=== PATIENT | male | born 1955 | race Caucasian/White ===

== ENCOUNTER 2018-12-12 05:48 | Inpatient (IN) | payer OTHER ==
[~2018-12-12] VITALS: Ht 177.8 cm; Wt 89.4 kg
[2018-12-12] MEDS ORDERED: ATEN50TA PO (06:45)
[2018-12-12] MEDS ORDERED: AMLO5TAB4 PO (06:45)
[2018-12-12] MEDS ORDERED: OMEP40CA33 PO (06:45)
[2018-12-12] MEDS ORDERED: LOSA100T3 PO (06:45)
[2018-12-12] MEDS ORDERED: ALVIMOPAN 12 MG CAPSULE PO ONE ×2 (07:03→07:15)
[2018-12-12] MEDS ORDERED: cefOXitin SODIUM 2 GM in D5W 100 ML IV ONE (07:15)
[2018-12-12] MEDS ORDERED: NS 1000 ML IV.SOLN IV ONE (08:00)
[2018-12-12] MEDS ORDERED: fentaNYL CITRATE 250 MCG/5 ML AMP IV ONE (08:00)
[2018-12-12] MEDS ORDERED: FAMOTIDINE PF 20 MG/2 ML VIAL IVP ONE (08:00)
[2018-12-12] MEDS ORDERED: ONDANSETRON HCL 4 MG/2 ML VIAL IVP ONE (08:00)
[2018-12-12] MEDS ORDERED: ROCURONIUM BROMIDE 10 MG/ML (ZEMURON) IV ONE (08:00)
[2018-12-12] MEDS ORDERED: KETOROLAC TROMETHAMINE 30 MG VIAL IVP ONE (08:00)
[2018-12-12] MEDS ORDERED: DEXAMETHASONE SOD PHOSPHATE 4 MG/ML VIAL IVP ONE (08:00)
[2018-12-12] MEDS ORDERED: SEVOFLURANE 15 MIN GAS INH ONE (08:00)
[2018-12-12] MEDS ORDERED: NS 100 ML BAG IV ONE (08:00)
[2018-12-12] MEDS ORDERED: LR 1,000 ML IV.SOLN IV ONE (08:00)
[2018-12-12] MEDS ORDERED: ROPIVACAINE HCL/PF 5 MG/ML 0.5% 30 ML VIAL INJ ONE (08:00)
[2018-12-12] MEDS ORDERED: NS IRRIG SOLN 1000 ML IR ONE (08:00)
[2018-12-12] MEDS ORDERED: MIDAZOLAM HCL 5 MG/5 ML VIAL IVP ONE (08:00)
[2018-12-12] MEDS ORDERED: PROPOFOL 200MG/ 20ML VIAL (DIPRIVAN) IV ONE (08:00)
[2018-12-12] MEDS ORDERED: cefOXitin SODIUM 2 GM/VIAL (MEFOXIN) IV ONE (08:00)
[2018-12-12] MEDS ORDERED: LR 1,000 ML IV SCH (08:51)
[2018-12-12] MEDS ORDERED: FAMOTIDINE PF 20 MG/2 ML VIAL ONE (08:55)
[2018-12-12] MEDS ORDERED: HYDROmorphone 1 MG INJ. 1 MG/ML AMPUL IVP PRN (09:00)
[2018-12-12] MEDS ORDERED: MEPERIDINE HCL/PF 25 MG/ML DISP.SYRIN IVP PRN (09:00)
[2018-12-12] MEDS ORDERED: HYDROmorphone 2 MG/ML VIAL IVP PRN (09:00)
[2018-12-12] MEDS ORDERED: BUPIVACAINE LIPOSOME/PF 266 MG/20 ML VIAL INFIL ONE (10:20)
[2018-12-12] MEDS: D5/0.45 NS 1,000 ML IV SCH ×2 (10:43→17:55)
[2018-12-12] MEDS ORDERED: ACETAMINOPHEN 325 MG TABLET PO PRN (10:45)
[2018-12-12] MEDS ORDERED: ONDANSETRON HCL 4 MG/2 ML VIAL IVP PRN (10:45)
[2018-12-12] MEDS ORDERED: HYDROcodone/ACETAMIN 5-325 MG TAB (NORCO/ VICODIN) PO PRN ×2 (10:45)
[2018-12-12] MEDS ORDERED: HYDROmorphone 2 MG/ML VIAL ONE ×3 (11:46→13:16)
[2018-12-12] MEDS: HYDROmorphone 2 MG/ML VIAL IVP PRN ×2 (11:50→13:06)
[2018-12-12 12:24] LABS: CREATININE 0.96 mg/dL (0.55-1.30); POTASSIUM 4.2 mmol/L (3.5-5.1)
[2018-12-12 12:31] LABS: HEMATOCRIT 38.1 % (36-54); HEMOGLOBIN 12.3 g/dL (14.0-18.0)
[2018-12-12 12:41] LABS: CALCIUM 8.2 mg/dL (8.4-11.0)
--- NOTE | 2018-12-12 16:32 | NUR ---
ADMISSION: The patient, VENTURA GURROLA, 63 y/o, M admitted by WILTON MENDOZA MD, was given written information regarding hospital policies, unit procedures and contact persons. Valuables were checked and logged.
--- NOTE | 2018-12-12 16:35 | NUR ---
NOTE REPORT RECEIVED FROM SKYLER LOPEZ. PATIENT HAD A LAPROSCOPIC ASSISTED RIGHT JEB COLECTOMY TO REMOVE A RIGHT COLON MASS. PATIENT IS STABLE. ALERT AND ORIENTED. NO C/O PAIN AT THIS TIME. CONT ON 3 L/M VIA NC, EL WELL. NO ACUTE DISTRESS. NO SOB. RESPIRATION EVEN AND UNLABORED. SKIN WARM AND DRY TO TOUCH. IV INTACT AND PATENT; EL IVF. MANE CATH INTACT AND PATENT DRAINING YELLOW URINE BY GRAVITY. BILAT SCDs INTACT. ORIENTED PATIENT TO ROOM, BED AND CALL LIGHT. BED INLOW AND LOCKED POSITION. SIDERAIL UP X3. BED ALARM ON. CALL LIGHT IN REACH. CONT TO MONITOR
[2018-12-12 16:46] VITALS: BP_SYST 121
--- NOTE | 2018-12-12 17:05 | NUR ---
CONSULTATION PAGED REASON FOR CONSULTATION:MEDICAL MANAGEMENT WAS CONSULT CALLED?Y PERSON WHO WAS NOTIFIED:[facility] CONSULTING PHYSICIAN:SHEFALI ALBARADO MANAGER IMAGING SPECIALTY:INTERNAL MEDICINE MANAGER IMAGING PHONE NUMBER: REQUESTING PHYSICIAN:WILTON WHITNEY
--- NOTE | 2018-12-12 17:30 | NUR ---
MADE AWARE OF PATIENT CONSULTATION; WILL SEE PATIENT TOMORROW
[2018-12-12] MEDS: HYDROmorphone 1 MG INJ. 1 MG/ML AMPUL IVP PRN ×2 (17:46→20:49)
--- NOTE | 2018-12-12 18:17 | NUR ---
PAIN PATIENT C/O 10/10 PAIN TO ABDOMINAL INCISION. ABDOMINAL BINDER IN PLACE. BP 127/68 HR 69. DILAUDID ADMINISTERED FOR SEVERE PAIN, EL WELL. CONT TO MONITOR
--- NOTE | 2018-12-12 19:05 | NUR ---
CLOSING NOTE PATIENT STABLE. RESTING IN BED. NO C/O PAIN AT THIS TIME. CONT ON O2@3L/M VIA. NO ACUTE DISTRESS. NO SOB. RESPIRATION EVEN AND UNLABORED. SKIN WARM AND DRY TO TOUCH. IV INTACT AND PATENT; EL IVF. SURGICAL DRESSING C/D/I WITH ABDOMINAL BINDER IN PLACE AND EL WELL. MANE CATH INTACT AND PATENT DRAINING YELLOW URINE. ALL NEEDS MET. BED IN LOW AND LOCKED POSITION. SIDEDRAIL UPX3. CALL LIGHT IN REACH. CONT TO MONITOR.
--- NOTE | 2018-12-12 19:15 | NUR ---
INITIAL NOTES: pt is awake, alert, oriented x 4. watching tv. complain moderate pain to abdomen. no sob, not distress. vital sign are stable and with in normal limit. pt is post right hemicolectomy, incisions are dry clean and intact, supported by abdominal binder. ivf infusing to right forearm using gauge18- patent and intact. pt has bilateral scd. garcia catheter draining well to clear urine. discuss plan of care to pt, his medication and safety. pt verbalized understanding. pt demonstrate I.S.. needs attended call light in reach. side rails up. low bed position. will follow-up.
[2018-12-12 20:16] VITALS: BP_SYST 122
[2018-12-12] MEDS: ALVIMOPAN 12 MG CAPSULE PO SCH (20:49)
[2018-12-12] MEDS: FAMOTIDINE PF 20 MG/2 ML VIAL IVP SCH (20:49)
[2018-12-12] MEDS: cefOXitin SODIUM 2 GM in D5W 100 ML IV SCH (21:04)
--- NOTE | 2018-12-12 22:00 | NUR ---
still awake, watching tv. no pain. not distress. stable. needs attended.
[2018-12-13] VITALS (7 sets, daily range): BP systolic 112–134
--- NOTE | 2018-12-13 00:48 | NUR ---
sleeping, non labored breathing. no sing of pain. stable. needs attended.
[2018-12-13] MEDS: HYDROmorphone 1 MG INJ. 1 MG/ML AMPUL IVP PRN ×7 (01:28→21:09)
--- NOTE | 2018-12-13 01:32 | NUR ---
pt call to fix alarm of his iv machine, complain of pain. stable vital sing. not distress. safety on isaura light in reach. will follow-up.
--- NOTE | 2018-12-13 03:14 | NUR ---
sleeping, no pain, no sob. stable. ivf infusing well. will recheck again.
[2018-12-13] MEDS: D5/0.45 NS 1,000 ML IV SCH ×2 (04:18→15:39)
--- NOTE | 2018-12-13 04:27 | NUR ---
pt wakes up and call for iv fluid is empty, change to new bag. pt complain of pain. blood pressure ok, educate pt. verbalized understanding. needs attended.safety on. will monitor.
--- NOTE | 2018-12-13 06:13 | NUR ---
sleeping, quietly. no sign of pain, no sob. ivf infusing well. garcia catheter draining well. call light in reach side rails up. will recheck the pt.
[2018-12-13 06:27] LABS: BASOPHILS % (AUTO) 0.3 % (0.0-2.0); HEMATOCRIT 33.5 % (36-54); HEMOGLOBIN 11.2 g/dL (14.0-18.0); LYMPHOCYTES # (AUTO) 0.8 K/uL (1.0-5.5); LYMPHOCYTES % (AUTO) 8.3 % (20.5-51.5); MEAN CORPUSCULAR HEMOGLOBIN 27 pg (27-31); MEAN CORPUSCULAR HGB CONC 34 % (32-36); MEAN CORPUSCULAR VOLUME 82 fL (79.0-98.0); MONOCYTES % (AUTO) 10.8 % (1.7-9.3); NEUTROPHILS # (AUTO) 7.7 K/uL (1.8-7.7); NEUTROPHILS % (AUTO) 80.6 % (40.0-70.0); PLATELET COUNT (AUTO) 217 K/uL (130-430); RED BLOOD CELL COUNT(AUTO) 4.11 MIL/uL (4.2-6.2); RED CELL DISTRIBUTION WIDTH 15.4 % (9.0-15.0); WHITE BLOOD COUNT (AUTO) 9.6 K/uL (4.8-10.8)
[2018-12-13 06:35] LABS: ALBUMIN 2.6 g/dL (3.4-4.8); CALCIUM 7.7 mg/dL (8.4-11.0); CREATININE 0.9 mg/dL (0.55-1.30); POTASSIUM 3.8 mmol/L (3.5-5.1); TOTAL BILIRUBIN 0.7 mg/dL (0.0-1.0)
--- NOTE | 2018-12-13 07:23 | NUR ---
closing: sleeping, wakes up when approach. stable. ivf infusing well. garcia catheter draining well. needs attended the whole shift. beside report given to am kaylee.
--- NOTE | 2018-12-13 07:39 | NUR ---
Opening Notes Patient received lying comfortably in his bed. Alert, awake and verbally responsive. Respiration even and unlabored, Denies any pain or discomfort at this time. IVF infusing well. Surgical site covered with clean and dry dressing, no bleeding noted. Discussed plan of care and using call light, patient verbalized understanding. Call light within the reach. Bed alarm on. Bed at lowest position. Will continue to monitor.
--- NOTE | 2018-12-13 08:17 | NUR ---
Nutrition Update Corey Scale 16 noted. Pt admitted for polyp of colon. Diet: NPO BMI: 28.3 kg/m2 RD to follow per nutrition care standards.
[2018-12-13] MEDS: ALVIMOPAN 12 MG CAPSULE PO SCH ×2 (09:06→21:00)
[2018-12-13] MEDS: FAMOTIDINE PF 20 MG/2 ML VIAL IVP SCH ×2 (09:07→21:00)
[2018-12-13] MEDS: cefOXitin SODIUM 2 GM in D5W 100 ML IV SCH (09:08)
[2018-12-13] MEDS: ENOXAPARIN SODIUM 30 MG/0.3 ML SYRINGE SUBCUT SCH (09:10)
--- NOTE | 2018-12-13 09:30 | NUR ---
Dr. Berger Rounds Seen and examined by Dr. Berger, will follow-up for any new orders.
--- NOTE | 2018-12-13 11:17 | NUR ---
RN ROUNDS Patient currently lying comfortably in his bed, awake, used incentive spirometry, able to do until 2500, well tolerated. Call light within the reach.
--- NOTE | 2018-12-13 13:30 | NUR ---
D/C Tobias catheter Discontinued Tobias catheter per Dr. Simms order, urine output is 925, clear yellow urine, well tolerated, denies any pain or discomfort. No bleeding. Will continue to monitor.
--- NOTE | 2018-12-13 15:15 | NUR ---
RN ROUNDS Patient currently lying in his bed, alert, awake and verbally responsive. Respiration even and unlabored. Call light within the reach.
[2018-12-13] MEDS: METOCLOPRAMIDE HCL 10 MG/2 ML VIAL IVP SCH ×2 (17:02→23:22)
--- NOTE | 2018-12-13 17:31 | NUR ---
Positive urine output Patient with urine output after Tobias catheter removed, denies any dysuria or hematuria. Call light within easy reach.
--- NOTE | 2018-12-13 18:59 | NUR ---
Closing Notes Patient remain to be alert, awake and verbally responsive . Respiration even and unlabored. Surgical site covered with clean dry and intact dressing, no bleeding noted, abdominal binder in place. IVF infusing well. Call light within the reach. Will endorse to the next shift.
--- NOTE | 2018-12-13 21:00 | NUR ---
PT RECIEVED AWAKE ALERT AND ORIENTED X4. PT HAD ABDOMINAL SURGERY YESTERDAY ..ABDONINAL DRSG INTACT.PT WAS MEDICATED FOR PAIN WITH DILAUDID 1MG IV VITAL SIGN STABLE . ON IVD51/2NS 100CC/HR .IV SITE INTACT . WILL CONTINUE TO MONITOR PT
--- NOTE | 2018-12-13 23:40 | NUR ---
PT MEDICATED WITH 1 TAB OF VICODIN FOR PAIN.WILL CONTINUE TO NONITOR PT.
[2018-12-14 00:35] VITALS: BP_SYST 134
[2018-12-14] MEDS: D5/0.45 NS 1,000 ML IV SCH ×2 (01:31→11:38)
[2018-12-14 04:59] VITALS: BP_SYST 129
--- NOTE | 2018-12-14 05:22 | NUR ---
PT HAD SMALL DARK STOOL .PT SLEPT WELL. WILL CONTINUE TO MONITOR PATIENT.
[2018-12-14 06:08] LABS: BASOPHILS % (AUTO) 0.2 % (0.0-2.0); HEMATOCRIT 33.3 % (36-54); HEMOGLOBIN 11.1 g/dL (14.0-18.0); LYMPHOCYTES # (AUTO) 0.9 K/uL (1.0-5.5); LYMPHOCYTES % (AUTO) 8.7 % (20.5-51.5); MEAN CORPUSCULAR HEMOGLOBIN 27 pg (27-31); MEAN CORPUSCULAR HGB CONC 33 % (32-36); MEAN CORPUSCULAR VOLUME 81 fL (79.0-98.0); MONOCYTES # (AUTO) 1.1 K/uL (0.0-1.0); MONOCYTES % (AUTO) 11.1 % (1.7-9.3); NEUTROPHILS # (AUTO) 7.9 K/uL (1.8-7.7); PLATELET COUNT (AUTO) 193 K/uL (130-430); RED CELL DISTRIBUTION WIDTH 15.5 % (9.0-15.0); WHITE BLOOD COUNT (AUTO) 9.8 K/uL (4.8-10.8)
[2018-12-14] MEDS: METOCLOPRAMIDE HCL 10 MG/2 ML VIAL IVP SCH ×3 (06:21→18:06)
[2018-12-14] MEDS: HYDROmorphone 1 MG INJ. 1 MG/ML AMPUL IVP PRN ×4 (06:36→18:12)
[2018-12-14 06:39] LABS: ALBUMIN 2.7 g/dL (3.4-4.8); CALCIUM 7.9 mg/dL (8.4-11.0); CREATININE 0.85 mg/dL (0.55-1.30); POTASSIUM 3.3 mmol/L (3.5-5.1); TOTAL BILIRUBIN 0.6 mg/dL (0.0-1.0)
[2018-12-14 08:00] VITALS: BP_SYST 134
--- NOTE | 2018-12-14 08:00 | NUR ---
ASSUMPTION OF CARE: RECEIVED PT ASLEEP, EASILY AROUSED VIA VERBAL STIMULI, DX:ALTERATION IN ELIMINATION, R/T RIGHT JEB COLECTOMY. PT C/O PAIN 8/10 VIA NUMERIC SCALE, WILL MEDICATED APPROPRIATELY WITH PRESCRIBED MEDS, PT IS ORIENTED X 4, HAS BM IN BSC, LOOSE DARK BROWN COLORED, NO FOWL ODOR NOTED, ABD HAS BINDER IN PLACE WITH NO DRAINAGE NOTED, HYPOACTIVE BOWEL SOUNDS NOTED UPON AUSCULTATION, PULSE PALPABLE, AFEBRILE, COLOR IS GOOD, ORIENTED TO UNIT, CALL LIGHT PLACED WITHIN REACH, WILL CONT' TO MONITOR AND ASSESS.
--- NOTE | 2018-12-14 09:00 | NUR ---
SENIOR TALENT ACQUISITION SPECIALIST: MORNING MEDS GIVEN, PER ORDERED BY Shahab TOLERATED WELL, WILL CONT' TO MONITOR AND ASSESS.
[2018-12-14] MEDS: ENOXAPARIN SODIUM 30 MG/0.3 ML SYRINGE SUBCUT SCH (10:18)
[2018-12-14] MEDS: FAMOTIDINE PF 20 MG/2 ML VIAL IVP SCH (10:19)
[2018-12-14] MEDS: ALVIMOPAN 12 MG CAPSULE PO SCH (10:19)
--- NOTE | 2018-12-14 10:30 | NUR ---
PAIN: PT C/O PAIN TO ABD, 8/10 VIA NUMERIC SCALE, DESCRIBED ACHING SENSATION, INTERMITTENTLY, WAS MEDICATED WITH DILAUDID 1MG IVP, TOLERATED WELL, AT BEDSIDE, CALL LIGHT WITHIN REACH, WILL CONT' TO MONITOR AND ASSESS.
--- NOTE | 2018-12-14 11:05 | NUR ---
REASSESSMENT OF PAIN: PT OBSERVED WHILE SLEEPING, NO INDICATION OF PAIN OR DISCOMFORT NOTED, AROUSED VIA VERBAL STIMULI, BREATHING EASY, NO S/S OF DISTRESS, POSITIONED FOR COMFORT, WILL CONT' TO MONITOR AND ASSESS.
[2018-12-14 13:13] VITALS: BP_SYST 120
[2018-12-14] MEDS ORDERED: HYDR-4272 PO ×2 (14:05→14:06)
[2018-12-14 16:13] VITALS: BP_SYST 150
--- NOTE | 2018-12-14 18:15 | NUR ---
PAIN: PT C/O PAIN TO ABD, 8/10 VIA NUMERIC SCALE, WAS MEDICATED WITH DILAUDID 1MG IVP, TOLERATED WELL, AT BEDSIDE, CALL LIGHT WITHIN REACH, WILL CONT' TO MONITOR AND ASSESS.
[2018-12-14 18:22] VITALS: BP_SYST 150
--- NOTE | 2018-12-14 18:35 | NUR ---
DISCHARGE: PT DISCHARGED TO HOME IN STABLE CONDITION, INSTRUCTIONS GIVEN WITH PRESCRIPTION AND APPT. DATE, VERBALIZES UNDERSTANDING, MEDICATION EDUCATION GIVEN ON HYDROCODONE (OPIOID) USE, VERBALIZES UNDERSTANDING, VSS, NO C/O PAIN, AT BEDSIDE WILL TRANSPORT PT HOME IN PRIVATE AUTO, ALL BELONGINGS ACCOUNTED FOR AND RETURNED TO PT, IV DISCONTINUED, TOLERATED WELL, PRESSURE DRSG APPLIED.
--- NOTE | 2018-12-20 16:13 | NUR ---
Discharge Follow Up Phone Call Phoned patient, , and left a voicemail message with reminder to make follow up appointments, offer of assistance, and Social Service contact information. Addendum: 12/20/18 at 1631 by Lili Ruiz [facility] Patient returned the call. He is doing well. He attended his follow up appointment today. Patient stated he was very happy with his care at [facility]. No questions or concerns.
== END 2018-12-14 18:50 | disposition home or self-care (01) | DRG 330 ==
LOC: SMU 05:48 → EDBD 07:30 → SMU 08:11
PROVIDERS: ADMIT Colon & Rectal Surgery; ATTEND Colon & Rectal Surgery
PROC: 0DNW4ZZ Release Peritoneum, Percutaneous Endoscopic Approach (ICD-10-PCS; 2018-12-12)
PROC: 0DTF4ZZ Resection of Right Large Intestine, Percutaneous Endoscopic Approach (ICD-10-PCS; principal; 2018-12-12 07:30)
DX: K63.9 Disease of intestine, unspecified (principal); E44.1 Mild protein-calorie malnutrition; I10 Essential (primary) hypertension; K66.0 Peritoneal adhesions (postprocedural) (postinfection)
CPT/HCPCS: 36415; 80048; 80053; 85018-TC; 85025; 86886; 86900; 86901; 87081; 88307; C1727; C9290; J0694; J1100; J1170; J1650; J1885; J2250; J2405; J2704; J2765; J3010; J3490; J7030; J7060; J7120